=== PATIENT | male | born 1995 | race Caucasian/White ===

== ENCOUNTER 2019-10-20 19:22 | Emergency (ER) | payer BC ==
[~2019-10-20] VITALS: Ht 182.9 cm; Wt 81.8 kg
[2019-10-20 19:24] VITALS: TEMP 98.5
[2019-10-20 20:20] LABS: BASO % 0.5 % (0.0-2.0); EOS # 0.3 (0.0-0.7); EOS % 3.4 % (0-4.0); GRAN # 5.1 (1.4-6.5); GRAN % 59.8 % (42.2-75.2); HEMATOCRIT 45.7 % (42.0-52.0); HEMOGLOBIN 15.4 g/dl (13.5-18.0); LYMPH # 2.4 (1.2-3.4); LYMPH % 28.4 % (20.0-51.0); MEAN CELL VOLUME 89 fl (80.0-100.0); MEAN CORPUSCULAR HEMOGLOBIN 30 pg (27.0-31.0); MEAN CORPUSCULAR HGB CONC 34 g/dl (33.0-37.0); MEAN PLATELET VOLUME 10.2 fl (7.4-10.4); MONO # 0.6 (0.1-0.6); MONO % 7.5 % (1.7-9.3); PLATELET COUNT 227 K/mm3 (130-400); RED BLOOD COUNT 5.16 M/mm3 (4.20-5.60); REDCELL DISTRIBUTION WIDTH-CV 12.3 % (11.5-14.5)
[2019-10-20 20:26] LABS: ALANINE AMINOTRANSFERASE 24 U/L (4-49); ALBUMIN 4.3 gm/dL (3.5-5.0); ALKALINE PHOSPHATASE 58 U/L (50-136); ANION GAP 7 mmol/L (7-16); AST,SGOT 30 U/L (15-37); BILIRUBIN,TOTAL 0.5 mg/dL (0.0-1.0); BLOOD UREA NITROGEN 17 mg/dL (9-20); CALCIUM 9.6 mg/dL (8.4-10.2); CARBON DIOXIDE 28 mmol/L (22-30); CHLORIDE 103 mmol/L (98-107); CREATININE, serum 0.91 (0.66-1.25); GLUCOSE 106 mg/dL (74-106); MAGNESIUM 1.9 mg/dL (1.6-2.3); POTASSIUM 3.8 mmol/L (3.4-5.0); SODIUM 138 mmol/L (137-145); TOTAL PROTEIN 7.1 gm/dL (6.4-8.2)
[2019-10-20 20:36] LABS: TROPONIN-I < 0.012 ng/mL (0.000-0.035)
[2019-10-20 20:55] LABS: TSH w REFLEX 0.931 uIU/mL (0.465-4.680)
[2019-10-20 21:57] VITALS: BP 124/77; PULSE 84
== END 2019-10-20 22:20 | disposition home or self-care (01) ==
LOC: COL.ER 19:22
PROVIDERS: Emergency Medicine
DX: R07.89 Other chest pain (principal); E78.5 Hyperlipidemia, unspecified; I10 Essential (primary) hypertension

== ENCOUNTER 2019-11-17 07:52 | Outpatient (CLI) | payer BC ==
[~2019-11-17] VITALS: Ht 182.9 cm; Wt 80.3 kg
[2019-11-17 08:00] VITALS: BP 132/72; PULSE 71; TEMP 98.7
[2019-11-17] MEDS ORDERED: PROZAC 10MG10 MG PO (08:26)
--- NOTE | 2019-11-17 11:39 | NUR ---
Discharge instructions reviewed with pt. Pt voices understanding. IV was discontinued with catheter tip intact, no phlebitis or infiltration. Pt was discharged via ambulation with discharge instructions in hand.
== END 2019-11-17 11:41 | disposition home or self-care (01) ==
LOC: COL.CAR 07:52
DX: R55 Syncope and collapse (principal); I47.1 Supraventricular tachycardia; Z20.828 Contact with and (suspected) exposure to other viral communicable diseases